=== PATIENT | female | born 1950 | race Asian ===

== ENCOUNTER 2022-07-25 19:30 | Outpatient (CLI) | payer MEDICARE, OTHER | END 2022-07-25 19:31 | disposition home or self-care (01) | LOC: SLEEPLAB 19:30 | PROVIDERS: ATTEND Student in an Organized Health Care Education/Training Program | DX: G47.33 Obstructive sleep apnea (adult) (pediatric) (principal); E11.9 Type 2 diabetes mellitus without complications; G47.61 Periodic limb movement disorder; K21.9 Gastro-esophageal reflux disease without esophagitis; I10 Essential (primary) hypertension; R06.83 Snoring | CPT/HCPCS: 95810 ==